=== PATIENT | female | born 1995 | race Hispanic/Latino ===

== ENCOUNTER 2017-06-16 00:34 | Observation (INO) | payer BC ==
[2017-06-16 01:22] LABS: Absolute Lymphocytes (CBC) 3.3 K/uL (0.7-4.9); Absolute Monocytes 0.6 K/uL (0.1-1.3); Absolute Neutrophil 5.1 K/uL (1.8-8.0); Eosinophils % 0.9 % (0-4.4); Hematocrit 41.4 % (36.0-45.0); Lymphocytes % 36.3 % (15.3-44.8); MCH 30.1 pg (27.0-35.0); MCV 90.7 fL (80-100); MPV 7.9 fL (7.6-11.3); RBC Red Blood Cell Count 4.56 M/uL (3.86-4.86)
[2017-06-16 01:26] LABS: Protime INR 1.22
[2017-06-16 01:33] LABS: Bicarbonate 24 mEq/L (21-31); Glucose Level 106 mg/dL (65-120); Potassium 3.7 mEq/L (3.6-5.0); Sodium Level 135 mEq/L (135-145)
[2017-06-16 01:39] LABS: ALT/SGPT 11 IU/L (10-60); AST/SGOT 17 IU/L (10-42); Albumin 4.7 g/dL (3.2-5.5); Alkaline Phosphatase 63 IU/L (42-121); BUN Blood Urea Nitrogen 17 mg/dL (6-20); Bilirubin Direct 0.1 mg/dL (0-0.2); Bilirubin Total 0.4 mg/dL (0.3-1.2); Creatine Phosphokinase 117 IU/L (22-269); Glomerular Filtration Rate 75 mL/min (=/>90)
[2017-06-16 01:42] LABS: CKMB Creatine Kinase MB 0.7 ng/ml (0.3-4.0)
[2017-06-16 02:12] LABS: Thyroid Stimulating Hormone 3.66 uIU/mL (0.34-5.60)
--- NOTE | 2017-06-16 02:36 | EDPHYS ---
Physician Documentation [facility] Name: Fany Jones Age: 22 yrs Sex: Female : 1995 Arrival Date: 06/16/2017 Time: 00:35 Bed 7 Private MD: ED Physician Jann Danielle HPI: 06/16 01:23 This 22 yrs old Female presents to ER via Ambulatory with complaints of Chest snw Pain, Numbness, Shortness Of Breath. 01:23 Onset: The symptoms/episode began/occurred suddenly, today, at 21:00, and became snw persistent. Associated signs and symptoms: Pertinent positives: chest pain. Modifying factors: The patient symptoms are alleviated by nothing. The patient has experienced similar episodes in the past, lasted longer than ever this evening, pt states she has had similar episodes x 3 this week but this is the longest it has ever lasted. saw Dr. Pierce and had a blood panel done three weeks ago. Pt states her Vitamin D levels were very low and she has been taking replacement. No other medication changes.. 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 - Social history:: Smoking status: Patient/guardian denies using tobacco, Patient uses alcohol, occasionally. Patient/guardian denies using street drugs. ROS: 01:18 Constitutional: Negative for fever, chills, and weight loss, Eyes: Negative for injury, snw pain, redness, and discharge, ENT: Negative for injury, pain, and discharge, Neck: Negative for injury, pain, and swelling. 01:18 Back: Negative for injury and pain, : Negative for injury, bleeding, discharge, and swelling. 01:18 Skin: Negative for injury, rash, and discoloration. 01:18 Cardiovascular: Positive for chest pain, palpitations. 01:18 Respiratory: Positive for shortness of breath. 01:18 Abdomen/GI: Positive for nausea. 01:18 MS/extremity: Positive for swelling. 01:18 Neuro: Positive for tingling, of the left arm. Exam: 01:18 Constitutional: This is a well developed, well nourished patient who is awake, alert, snw and in no acute distress. Head/Face: Normocephalic, atraumatic. Eyes: Pupils equal round and reactive to light, extra-ocular motions intact. Lids and lashes normal. Conjunctiva and sclera are non-icteric and not injected. Cornea within normal limits. Periorbital areas with no swelling, redness, or edema. ENT: Nares patent. No nasal discharge, no septal abnormalities noted. Tympanic membranes are normal and external auditory canals are clear. Oropharynx with no redness, swelling, or masses, exudates, or evidence of obstruction, uvula midline. Mucous membranes moist. Neck: Trachea midline, no thyromegaly or masses palpated, and no cervical lymphadenopathy. Supple, full range of motion without nuchal rigidity, or vertebral point tenderness. No Meningismus. Chest/axilla: Normal chest wall appearance and motion. Nontender with no deformity. No lesions are appreciated. 01:18 Abdomen/GI: Soft, non-tender, with normal bowel sounds. No distension or tympany. No guarding or rebound. No evidence of tenderness throughout. Back: No spinal tenderness. No costovertebral tenderness. Full range of motion. Skin: Warm, dry with normal turgor. Normal color with no rashes, no lesions, and no evidence of cellulitis. MS/ Extremity: Pulses equal, no cyanosis. Neurovascular intact. Full, normal range of motion. Neuro: Awake and alert, GCS 15, oriented to person, place, time, and situation. Cranial nerves II-XII grossly intact. Motor strength 5/5 in all extremities. Sensory grossly intact. Cerebellar exam normal. Normal gait. 01:18 Cardiovascular: Rate: normal, Rhythm: regular, Pulses: no pulse deficits are appreciated, Heart sounds: normal, Edema: 1+ edema to level of left foot and right foot. 01:18 Respiratory: the patient does not display signs of respiratory distress, Respirations: shallow respirations, tachypnea, Breath sounds: are clear throughout. Vital Signs: 01:06 BP 156 / 117; Pulse 75; Resp 18 S; Temp 98.4(O); Pulse Ox 100% on R/A; Weight 57.15 kg jd3 (R); Height 5 ft. 7 in. (170.18 cm) (R); Pain 0/10; 01:36 BP 136 / 93; Pulse 80; Resp 17 S; Pulse Ox 99% on R/A; Pain 0/10; jd3 02:32 BP 124 / 80; Pulse 96; Resp 18 S; Pulse Ox 100% on R/A; Pain 0/10; jd3 02:57 BP 144 / 97; Pulse 79; Resp 15 S; Pulse Ox 100% on R/A; Pain 0/10; jd3 04:03 BP 124 / 86; Pulse 83; Resp 18 S; Pulse Ox 100% on R/A; Pain 0/10; jd3 01:06 Body Mass Index 19.73 (57.15 kg, 170.18 cm) jd3 MDM: 00:54 Patient medically screened. snw 02:00 ED course: pt is feeling back to normal but has moved to [place] and as yet does [facility] not have a Hvac Instructor. I fear she will be unable to get urgent follow up and would like her to be hospitalized for Echo and Cardiology consultation. 02:35 Data reviewed: vital signs, nurses notes. Data interpreted: Pulse oximetry: on room air snw is 100 %. Interpretation: normal. Counseling: I had a detailed discussion with the patient and/or guardian regarding: the historical points, exam findings, and any diagnostic results supporting the discharge/admit diagnosis, the presence of at least one elevated blood pressure reading (>120/80) during this emergency department visit, lab results, radiology results, the need for outpatient follow up, the need for further work-up and treatment in the hospital. Physician consultation: Yvette More MD was called at 02:36, was contacted at 02:36, regarding admission, to the telemetry unit. 04 01:00 Order name: Basic Metabolic Panel; Complete Time: 02:15 snw 06/16 01:00 Order name: BNP; Complete Time: 02:15 snw 06/16 01:00 Order name: CBC with Diff; Complete Time: 02:15 snw 06/16 01:00 Order name: Ckmb; Complete Time: 02:15 snw 06/16 01:00 Order name: CPK; Complete Time: 02:15 snw 06/16 01:00 Order name: LFT's; Complete Time: 02:15 snw 06/16 01:00 Order name: Magnesium; Complete Time: 02:15 snw 06/16 01:00 Order name: PT-INR; Complete Time: 02:15 snw 06/16 01:00 Order name: Ptt, Activated; Complete Time: 02:15 snw 06/16 01:00 Order name: Troponin (emerg Dept Use Only); Complete Time: 02:15 snw 06/16 01:00 Order name: TSH; Complete Time: 02:15 snw 06/16 01:00 Order name: Test, Serum; Complete Time: 02:15 snw 06/16 01:54 Order name: Urine Dipstick--Ancillary (enter results) [facility] 06/16 01:54 Order name: Urine --Ancillary (enter results) 2 06/16 01:00 Order name: XRAY Chest (1 view) snw 06/16 01:00 Order name: EKG; Complete Time: 01:01 snw 06/16 01:00 Order name: Cardiac monitoring; Complete Time: 01:16 snw 06/16 01:00 Order name: EKG - Nurse/Tech; Complete Time: 01:03 snw 06/16 01:00 Order name: IV Saline Lock; Complete Time: 01:16 snw 06/16 01:00 Order name: Labs collected and sent; Complete Time: 01:16 snw 06/16 01:00 Order name: O2 Per Protocol; Complete Time: 01:16 snw 06/16 01:00 Order name: O2 Sat Monitoring; Complete Time: 01:16 snw 06/16 01:00 Order name: Urine Dipstick-Ancillary (obtain specimen); Complete Time: 01:28 snw Administered Medications: No medications were administered Disposition: 06/16/17 02:35 Hospitalization ordered by Yvette More for Observation. Preliminary diagnosis is Chest pain, unspecified. - Bed requested for Telemetry/MedSurg (observation). - Status is Observation. jd3 - Condition is Stable. - Problem is new. - Symptoms have improved. UTI on Admission? No Addendum: 06/20/2017 08:33 Co-signature as Attending Physician, Jann Danielle MD. g s Signatures: Dispatcher [facility] Sharon Walker RN RN kl Corina Kearney, WEBFED OFFSET PRESS OPERATOR-C WEBFED OFFSET PRESS OPERATOR-Csnw Jann Danielle MD MD gs Davies, Jonathon RN RN jd3
--- NOTE | 2017-06-16 02:36 | ER ---
Nurse's Notes [facility] Name: Fany Jones Age: 22 yrs Sex: Female : 1995 Arrival Date: 06/16/2017 Time: 00:35 Bed 7 Private MD: Diagnosis: Chest pain, unspecified Presentation: 06/16 01:00 Presenting complaint: Patient states: " was sitting in bed when I got very light headed jd3 and my chest started to hurt, I tried to wait it out, but it just got worse. My arm started to get numb and pulse oximeter I keep at the bedside said I was very low on my oxygen levels.". Transition of care: patient was not received from another setting of care. Onset of symptoms was June 16, 2017. Care prior to arrival: None. 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 - Social history:: Smoking status: Patient/guardian denies using tobacco, Patient uses alcohol, occasionally. Patient/guardian denies using street drugs. Screenin:15 Abuse screen: Denies threats or abuse. Nutritional screening: No deficits noted. jd3 Tuberculosis screening: No symptoms or risk factors identified. Fall Risk IV access (20 points). Total Gibbs Fall Scale indicates No Risk (0-24 pts). Assessment: 01:08 General: Appears in no apparent distress. uncomfortable, Behavior is cooperative, jd3 appropriate for age, anxious. Pain: Denies pain. Pain does not radiate. Pain began suddenly, 2 hours ago. Neuro: Level of Consciousness is awake, alert, obeys commands, Oriented to person, place, time, situation. Cardiovascular: Heart tones S1 S2 present Capillary refill < 3 seconds Rhythm is regular. Respiratory: Airway is patent Respiratory effort is even, unlabored, Respiratory pattern is regular, symmetrical, Breath sounds are clear bilaterally. GI: Abdomen is flat, Bowel sounds present X 4 quads. Abd is soft and non tender X 4 quads. Reports nausea. : No signs and/or symptoms were reported regarding the genitourinary system. EENT: No signs and/or symptoms were reported regarding the EENT system. Derm: Skin is intact, Skin is dry, Skin is normal, Skin temperature is warm. Musculoskeletal: Circulation, motion, and sensation intact. Range of motion: intact in all extremities. 01:37 Reassessment: Patient appears in no apparent distress at this time. Patient and/or jd3 family updated on plan of care and expected duration. Pain level reassessed. Patient is alert, oriented x 3, equal unlabored respirations, skin warm/dry/pink. 02:32 Reassessment: Patient appears in no apparent distress at this time. Patient and/or jd3 family updated on plan of care and expected duration. Pain level reassessed. Patient is alert, oriented x 3, equal unlabored respirations, skin warm/dry/pink. 02:57 Reassessment: Patient appears in no apparent distress at this time. Patient and/or jd3 family updated on plan of care and expected duration. Pain level reassessed. Patient is alert, oriented x 3, equal unlabored respirations, skin warm/dry/pink. provider at bedside discussing plan of care. 04:04 Reassessment: Patient appears in no apparent distress at this time. Patient and/or jd3 family updated on plan of care and expected duration. Pain level reassessed. Patient is alert, oriented x 3, equal unlabored respirations, skin warm/dry/pink. 04:19 Reassessment: Patient appears in no apparent distress at this time. Patient and/or jd3 family updated on plan of care and expected duration. Pain level reassessed. Patient is alert, oriented x 3, equal unlabored respirations, skin warm/dry/pink. pt reported understanding of need for admission Patient denies pain at this time. Vital Signs: 01:06 BP 156 / 117; Pulse 75; Resp 18 S; Temp 98.4(O); Pulse Ox 100% on R/A; Weight 57.15 kg j (R); Height 5 ft. 7 in. (170.18 cm) (R); Pain 0/10; 01:36 BP 136 / 93; Pulse 80; Resp 17 S; Pulse Ox 99% on R/A; Pain 0/10; jd3 02:32 BP 124 / 80; Pulse 96; Resp 18 S; Pulse Ox 100% on R/A; Pain 0/10; jd3 02:57 BP 144 / 97; Pulse 79; Resp 15 S; Pulse Ox 100% on R/A; Pain 0/10; jd3 04:03 BP 124 / 86; Pulse 83; Resp 18 S; Pulse Ox 100% on R/A; Pain 0/10; jd3 01:06 Body Mass Index 19.73 (57.15 kg, 170.18 cm) jd3 ED Course: 00:35 Patient arrived in ED. ds1 00:54 Corina Kearney FNP-C [facility]. snw 00:54 Jann Danielle MD is Attending Physician. snw 01:[address] RN is Primary Nurse. jd3 01:03 Triage completed. jd3 01:08 Arm band placed on. EKG completed in triage. Results shown to MD. jd3 01:13 X-ray completed. Portable x-ray completed in exam room. Patient tolerated procedure kw well. 01:14 XRAY Chest (1 view) In Process Unspecified. EDMS 01:15 Patient has correct armband on for positive identification. Bed in low position. Call jd3 light in reach. Side rails up X2. Adult w/ patient. youth nutritional monitor on. Pulse ox on. NIBP on. 01:15 Inserted saline lock: 20 gauge in right forearm, using aseptic technique. Blood jd3 collected. placed by Vikki BAINS. Patient maintains SpO2 saturation greater than 95% on room air. 02:35 Yvette More MD is Hospitalizing Provider. snw 04:03 No provider procedures requiring assistance completed. Patient admitted, IV remains in jd3 place. Administered Medications: No medications were administered Outcome: 02:35 Decision to Hospitalize by Provider. snw 04:04 Condition: stable jd3 04:04 Instructed on the need for admit, Demonstrated understanding of instructions. 04:12 Admitted to Tele accompanied by tech, via wheelchair, room 430, with chart, Report jd3 called to Vickie BAINS 04:20 Patient left the ED. jd3 Signatures: Dispatcher [employer] EDDE Corina Kearney FNP-C FNP-Rhoda Sher ds1 Poonam Tai Jonathon RN RN jd3 Corrections: (The following items were deleted from the chart) 02:58 02:57 Reassessment: Patient appears in no apparent distress at this time. Patient jd3 and/or family updated on plan of care and expected duration. Pain level reassessed. Patient is alert, oriented x 3, equal unlabored respirations, skin warm/dry/pink. jd3
--- NOTE | 2017-06-16 03:04 | P.HP ---
Certification for Inpatient Patient admitted to: Observation With expected LOS: <2 Midnights Practitioner: I am a practitioner with admitting privileges, knowledge of patient current condition, hospital course, and medical plan of care. Services: Services provided to patient in accordance with Admission requirements found in Title 42 Section 412.3 of the Code of Federal Regulations Patient History Date of Service: 06/16/17 Reason for admission: palpitations, chest pain, dyspnea History of Present Illness: Ms Jones is a 22 years old woman with history of AVR in 2010 due to aortic regurgitation. She is from [facility] and is recently relocated here, she does not have a local global analytics head yet. Last ECHO done in February of 2017 and she said that "every thing was ok". Since about 5 month ago, she has had recurrent episodes of palpitations associated with lightheadedness, SOB and chest tightness. The episodes last for about 10 minutes, and resolved when she relax. Last night she had similar symptoms, however, this time last for about 3 hours. Her pulse oxymeter showed HR about 135 bpm. At arrival to ED she was on SR at 70 's bpm. At the time of my examination, palpitations and SOB were resolved, however, she was still complaining of lightheadedness. Trop I negative. INR 1.2 , she takes Coumadin 5 mg daily. 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 moist/pink, EOMI, Sclerae nonicteric Neck: Supple, 2+ carotid pulse no bruit, No LAD, Without JVD or thyroid abnormality Respiratory: Clear to auscultation bilaterally, Normal air movement Cardiovascular: Regular rate/rhythm, Normal S1 S2 Gastrointestinal: Normal bowel sounds, No tenderness Musculoskeletal: No tenderness Integumentary: No rashes Neurological: Normal speech, Normal strength at 5/5 x4 extr, Normal tone, Normal affect Lymphatics: No axilla or inguinal lymphadenopathy - Studies Laboratory Data (last 24 hrs) 06/16/17 01:10: PT 14.4 H, INR 1.22, APTT 29.8 06/16/17 01:10: WBC 9.2, Hgb 13.7, Hct 41.4, Plt Count 324 06/16/17 01:10: B-Natriuretic Peptide 21 06/16/17 01:10: Sodium 135, Potassium 3.7, BUN 17, Creatinine 0.92, Glucose 106 , Magnesium 2.0, Total Bilirubin 0.4, AST 17, ALT 11, Alkaline Phosphatase 63 Assessment and Plan - Problems (Diagnosis) (1) Palpitations Current Visit: Yes Status: Acute (2) Hx of aortic valve replacement Current Visit: Yes Status: Acute (3) Aortic stenosis Current Visit: Yes Status: Acute (4) Lightheadedness Current Visit: Yes Status: Acute - Plan Ms Jones will be admitted to the hospital under observation due to palpitations associated with dyspnea and lightheadedness. EKG shows no ST-T abnormalities, trop I negative. Consider paroxysmal SVT as differential diagnosis. Will order an ECHO, consult global analytics head. Will order full dose lovenox until INR get appropriate range of anticoagulation. - Advance Directives Does patient have a Living Will: No Does patient have a Durable POA for Healthcare: No - Code Status/Comfort Care Code Status Assessed: Yes Code Status: Full Code
[2017-06-16] MEDS ORDERED: ONDANSETRON 4 MG/2 ML VIAL IV PRN (04:28)
[2017-06-16 05:08] LABS: Urine Blood TRACE (NEG); Urine Glucose NEGATIVE (NEG); Urine Protein NEGATIVE (NEG); Urine Specific Gravity 1.015 (1.005-1.030)
--- NOTE | 2017-06-16 06:31 | EKG ---
Test Date: 2017-06-16 Test Time: 00:57:43 Toe Former: TIMOTEO MEASUREMENT RESULTS: Intervals: Rate: 77 UT: 144 QRSD: 88 QT: 392 QTc: 443 Rock: P: 69 UT: 144 QRS: 84 T: 27 INTERPRETIVE STATEMENTS: Normal sinus rhythm Normal ECG Compared to ECG 04/24/2017 10:05:32 Incomplete right bundle-branch block no longer present Electronically Signed On 06-16-17 06:30:47 CDT by Srinivas Jain
[2017-06-16] MEDS: ENOXAPARIN 60 MG/0.6 ML SQ SCH ×2 (08:49→20:04)
--- NOTE | 2017-06-16 08:55 | RAD REPORT ---
EXAM DESCRIPTION: RAD - Chest Single View - 06/16/2017 1:15 am CLINICAL HISTORY: Chest pain. COMPARISON: None. FINDINGS: Portable technique limits examination quality. The lungs are grossly clear. The heart is normal in size. No displaced fractures.Sternotomy wires not ed. IMPRESSION: No acute intrathoracic process suspected.
[2017-06-16] MEDS ORDERED: ENOXAPARIN 40 MG/0.4 ML SQ SCH (09:00)
--- NOTE | 2017-06-16 13:25 | CON ---
Additional: Dr. Sandoval. Chief Complaint: Heart racing, shortness of breath. History Of Present Illness: Ms. Jones has a history of aortic valve surgery at age 19. It was c ongenital aortic stenosis. She did not have rheumatic heart disease. 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 It was fairly small, a size usually used for pediatrics and she is a small person. Her nuclear auxiliary operator in [place] was concerned that she was developing stenosis within the prosthetic valve and was having mitral regurgitation. The patient reports that her heart rate pi cks up to 130 at times and they do not have any EKG recordings available when that is doing that. I strongly suspect she has atrial fib. Outpatient medications are Coumadin, 52950 unit vitamin D3 caps ule. Coumadin is 5 mg a day since being in the hospital. Cardiac enzymes are normal. Her INR is davis btherapeutic. It is only 1.22 risky for a patient with a mechanical aortic valve. She is getting enoxaparin presently and course . Increase the dose of Coumadin she takes. We ne ed to keep her on Lovenox until the INR is above 2. Physical Examination: General: She is 5 feet 7 inches, 125 pounds. Alert, oriented, pleasant, not in distress. Lungs: Clear. Cardiac: Normal except for prosthetic heart tones. There is no significant murmur. No diastolic mu rmur. Abdomen: Soft. Extremities: No cyanosis, clubbing, or edema. Distal pulses are normal. Though the patient is not anticoagulated enough I do not think there is any significant valvular dysf unction. We will do an echo and see then. I suspect she has atrial fibrillation. We will have to r ecord it before we could really engage in antiarrhythmic drug therapy. I will ask the ER to make nai e they did not actually see some atrial fibrillation and I would recommend, we keep her in the hospit al till her INR is therapeutic. WENDY/MARCOS Voice ID: [id number] Report ID: [id number]
--- NOTE | 2017-06-16 14:48 | ECHO ---
HEIGHT: 5 ft 7 in WEIGHT: 125 lb 4.8 oz DATE OF STUDY: 06/16/[address]: Yvette Sandoval MD 2-DIMENSIONAL: YES M.MODE: YES DOPPLER: YES COLOR FLOW: YES TDS: NO PORTABLE: NO DEFINITY: NO BUBBLE STUDY: NO DIAGNOSIS: PALPITATIONS/ CHEST PAIN CARDIAC HISTORY: CATHERIZATION: NO SURGERY: YES PROSTHETIC VALVE: YES (AORTIC VALVE) PACEMAKER: NO MEASUREMENTS (cm) DIASTOLIC (NORMALS) SYSTOLIC (NORMALS) IVSd 0.8 (0.6-1.2) LA Diam 2.3 (1.9-4.0) LVEF 69% LVIDd 4.1 (3.5-5.7) LVIDs 2.5 (2.0-3.5) %FS 38% LVPWd 0.9 (0.6-1.2) Ao Diam 2.1 (2.0-3.7) 2 DIMENSIONAL ASSESSMENT: RIGHT ATRIUM: NORMAL LEFT ATRIUM: NORMAL RIGHT VENTRICLE: NORMAL LEFT VENTRICLE: NORMAL TRICUSPID VALVE: NORMAL MITRAL VALVE: MITRAL VALVE PROLAPSE WITH THICKENING PULMONIC VALVE: NORMAL AORTIC VALVE: BIOPROSTHETIC PERICARDIAL EFFUSION: NONE AORTIC ROOT: NORMAL LEFT VENTRICULAR WALL MOTION: PARADOXICAL SEPTAL MOTION SEEN POST THORACOTOMY. DOPPLER/COLOR FLOW: MILD AORTIC REGURGITATION. NO SIGNIFICANT AORTIC PROSTHETIC STENOSIS, PEAK/MEAN GRADIENT 28/20mmHg. ESTIMATED AORTIC VALVE AREA 2.6 CENTIMETERS SQUARED. MILD MITRAL AND TRICUSPID REGURGITATION. NORMAL RIGHT VENTRICULAR SYSTOLIC PRESSURE. COMMENTS: NORMAL LEFT VENTRICULAR EJECTION FRACTION WITH PARADOXICAL SEPTAL MOTION. PROSTHETIC AORTIC VALVE WITH MILD PARAVALVULAR AORTIC REGURGITATION. NO SIGNIFICANT AORTIC STENOSIS. MILD MITRAL AND TRICUSPID REGURGITATION. MITRAL VALVE PROLAPSE. TECHNOLOGIST: VANITA DIAZ
--- NOTE | 2017-06-16 15:10 | PN ---
Date of Progress Note: 06/16/2017 Subjective: The patient is seen and examined, chart reviewed and case discussed with RN and Dr. Jain. The patient states her palpitations are improved. Her condition is overall better. Denies any chest pain or shortness of breath. Review of Systems: Negative except as above. Medications: Reviewed. Physical Examination: Vital Signs: Temperature 98.5, heart rate 67, blood pressure 117/69, respirations 16, and O2 98% on room air. General: Awake, alert, oriented, no acute distress. cachectic female. BMI 19. CV: S1, S1. Peripheral pulses present. Positive mechanical murmur. Respiratory: Moving air well bilaterally. No wheezing. Gastrointestinal: Soft abdomen. Nontender, nondistended. Positive bowel sounds. Extremities: No clubbing, cyanosis, or edema. Neurologic: Nonfocal. Laboratory Data: Sodium 135, potassium 3.7, chloride 107, CO2 24, BUN 17, creatinine 0.92, glucose 106, calcium is 10.1, and magnesium 2. Troponin less than 0.03 x2. BNP 21. TSH 3.66. Urine test negative. INR 1.22. WBC 9.2, H and H 13.7, 41.4, and platelets 324. Chest x-ray personally reviewed , shows intrathoracic process identified. Echocardiogram pending. Assessment And Plan: A 22-year-old female with; 1. Palpitations, may be paroxysmal atrial fibrillation or other arrhythmias, such as non sustained ventricular tachycardia. We will continue cardiac telemetry and obtain echocardiogram. Cardiology is being consulted. 2. History of mechanical aortic valve replacement due to congenital disorder. INR is subtherapeutic. We will continue on therapeutic dose of Lovenox 1 mg/ kg q.12 hours and increase Coumadin dose and monitor INR. 3. History of aortic stenosis. 4. Lightheadedness, resolved. SA/MODL Voice ID: [id number] Report ID: [id number] MTDD
[2017-06-16] MEDS ORDERED: WARFARIN SODIUM 6 MG TAB PO SCH (17:00)
[2017-06-17] MEDS ORDERED: NA CHLORIDE 0.9% 0 ML ONE (01:32)
[2017-06-17] MEDS ORDERED: ACETAMINOPHEN 500 MG TAB PO PRN (05:05)
[2017-06-17 05:12] LABS: Absolute Lymphocytes (CBC) 4.7 K/uL (0.7-4.9); Absolute Monocytes 0.8 K/uL (0.1-1.3); Absolute Neutrophil 4.3 K/uL (1.8-8.0); Eosinophils % 2.1 % (0-4.4); Hematocrit 41.1 % (36.0-45.0); Lymphocytes % 46.2 % (15.3-44.8); MCH 29.9 pg (27.0-35.0); MCV 91.4 fL (80-100); MPV 8.3 fL (7.6-11.3); Monocytes % 8.2 % (3.3-12.3)
[2017-06-17 05:15] LABS: Protime INR 1.13
[2017-06-17] MEDS: ENOXAPARIN 60 MG/0.6 ML SQ SCH (08:20)
--- NOTE | 2017-06-17 08:22 | EKG ---
Test Date: 2017-06-17 Test Time: 07:57:07 Child Protective Services Specialist: AED MEASUREMENT RESULTS: Intervals: Rate: 65 [place]: 140 QRSD: 88 QT: 414 QTc: 430 [place]: P: -14 MO: 140 QRS: 73 T: 4 INTERPRETIVE STATEMENTS: Normal sinus rhythm Normal ECG Compared to ECG 06/16/2017 00:57:43 No significant changes Electronically Signed On 06-17-17 08:21:36 CDT by Srinivas Jain
--- NOTE | 2017-06-18 01:09 | DS ---
Date of Discharge: 06/17/2017 Supervisor Production: Srinivas Jain MD, Cardiology. Admitting Diagnoses: 1.Palpitations. 2.History of aortic valve replacement. 3.Aortic stenosis. 4.Lightheadedness. Discharge Diagnoses: 1.Palpitations, likely paroxysmal atrial fibrillation. 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 3.Subtherapeutic INR. 4.History of aortic stenosis. 5.Lightheadedness, resolved. Hospital Course: The patient is a 22-year-old female who was admitted to the hospital for palpitatio ns. The patient stated that her heart rate was in the 130s and this has occurred before, however, di d not go away this time. The patient came into the ER for further evaluation. She was admitted, was back in sinus rhythm. Echocardiogram was done, which showed EF of 69%. Prosthetic aortic valve wit h mild paravalvular aortic regurgitation. No significant aortic stenosis. Mild mitral and tricuspid regurgitation. Mitral valve prolapse. Chest x-ray was also negative. Labs showed negative troponi n levels. White count was normal. Her INR was found to be subtherapeutic at 1.22. She was started on Lovenox 60 mg b.i.d., 1 mg/kg dose. Her Coumadin dose was also increased. The patient was counse led again on being compliant with her medications. She states that she has not missed any doses. Jules rizo was also counseled on Coumadin restricted diet. The patient notes understanding. The patient then did not have any arrhythmias on her telemetry. She continued to be in sinus rhythm with the rate in the 60s therefore unable to tolerate beta-jayne. The patient then wanted to go home. She underst ands that her INR is subtherapeutic and it may be safer for her to be monitored in the hospital to singh ve INR checked and keep an eye on her blood levels. However, the patient would rather go home. She has given herself Lovenox shots previously and is reliable and has good followup. The patient plans to follow up with Dr. Jain' office on Monday for INR check. Dr. Jain will see the patient on Mon for INR check. The patient was then cleared for discharge from Cardiology standpoint. The patie daniel was then discharged home in a stable condition. Activity: As tolerated. Medications: As per medication reconciliation list. Continue Lovenox 1 mg/kg dose b.i.d. until INR is therapeutic between 2.5 and 3.5. PCP to adjust Coumadin dose. Return to ER for worsening conditi on. Diet: Coumadin restricted diet. Medications: As per medication reconciliation list. Discharge Physical Examination: General: Awake, alert, oriented, no acute distress. CV: S1, S2. Peripheral pulses present. Regular rate and rhythm. Mechanical murmur. Respiratory: Clear to auscultation bilaterally. No wheezing. Abdomen: Soft, nontender, nondistended. Positive bowel sounds. Extremities: No clubbing, cyanosis, edema. Neurologic: Nonfocal. SA/MODL Voice ID: [id number] Report ID: [id number]
== END 2017-06-17 11:30 | disposition home or self-care (01) ==
LOC: ER 00:34 → ERHOLD 02:38 → 4TH 03:58
PROVIDERS: ADMIT Internal Medicine; ATTEND Internal Medicine
DX: R00.2 Palpitations (principal); Z95.2 Presence of prosthetic heart valve; R42 Dizziness and giddiness; R79.1 Abnormal coagulation profile
CPT/HCPCS: 36415; 71045; 80048; 80076; 81003; 81025; 82550; 82553; 83735; 83880; 84443; 84484; 84703; 85025; 85610; 85730; 93005; 93306; 94760; 99285; G0378; J1650; J2405

== ENCOUNTER 2017-12-05 03:28 | Emergency (ER) | payer BC ==
[2017-12-05] MEDS ORDERED: ONDANSETRON 4 MG/2 ML VIAL ONE (04:18)
[2017-12-05] MEDS ORDERED: NA CHLORIDE 0.9% 1,000 ML ONE (04:45)
[2017-12-05 04:53] LABS: Absolute Lymphocytes (CBC) 1.8 K/uL (0.7-4.9); Absolute Monocytes 0.3 K/uL (0.1-1.3); Absolute Neutrophil 6.8 K/uL (1.8-8.0); Basophils % 0.5 % (0-1.3); Eosinophils % 0.5 % (0-4.4); Hematocrit 40.7 % (36.0-45.0); MCV 92.2 fL (80-100); MPV 8.3 fL (7.6-11.3); Monocytes % 3.5 % (3.3-12.3); RBC Red Blood Cell Count 4.41 M/uL (3.86-4.86)
[2017-12-05 05:01] LABS: Albumin 4.3 g/dL (3.4-5.0); Bilirubin Direct 0.1 mg/dL (0-0.2); Bilirubin Total 0.3 mg/dL (0.2-1.0); Potassium 4.6 mmol/L (3.5-5.1); Protein, Total 7.8 g/dL (6.4-8.2)
--- NOTE | 2017-12-05 05:44 | EDPHYS ---
Physician Documentation [facility] Name: Fany Jones Age: 22 yrs Sex: Female : 1995 Arrival Date: 12/05/2017 Time: 03:30 Bed 15 Private MD: Kari Parker ED Physician Leisa Osorio HPI: 12/05 05:08 This 22 yrs old Female presents to ER via Ambulatory with complaints of ma2 Nausea/Vomiting, Headache. 05:08 The patient presents to the emergency department with nausea, diarrhea. Onset: The ma2 symptoms/episode began/occurred gradually, 1 day(s) ago. Associated signs and symptoms: Pertinent positives: nausea, Pertinent negatives: abdominal pain, belching, diarrhea, fever, flatulence, GI bleeding, vaginal discharge. Severity of symptoms: At their worst the symptoms were moderate in the emergency department the symptoms are unchanged. The patient has experienced a previous episode. 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 - Social history:: Smoking status: Patient/guardian denies using tobacco, Patient/guardian denies using alcohol, street drugs, The patient lives with family. - Ebola Screening: : No symptoms or risks identified at this time. - Family history:: not pertinent. ROS: 05:08 Constitutional: Negative for fever, chills, and weight loss, Neck: Negative for injury, ma2 pain, and swelling, Cardiovascular: Negative for chest pain, palpitations, and edema. 05:08 Abdomen/GI: Positive for nausea, Negative for abdominal pain, nausea and vomiting, diarrhea, constipation, abdominal distension, black/tarry stool, rectal bleeding, bowel incontinence. 05:08 All other systems are negative. Exam: 05:08 Constitutional: This is a well developed, well nourished patient who is awake, alert, ma2 and in no acute distress. Chest/axilla: Normal chest wall appearance and motion. Nontender with no deformity. No lesions are appreciated. Cardiovascular: Regular rate and rhythm with a normal S1 and S2. No gallops, murmurs, or rubs. Normal PMI, no JVD. No pulse deficits. Respiratory: Lungs have equal breath sounds bilaterally, clear to auscultation and percussion. No rales, rhonchi or wheezes noted. No increased work of breathing, no retractions or nasal flaring. Abdomen/GI: Soft, non-tender, with normal bowel sounds. No distension or tympany. No guarding or rebound. No evidence of tenderness throughout. Back: No spinal tenderness. No costovertebral tenderness. Full range of motion. Neuro: Awake and alert, GCS 15, oriented to person, place, time, and situation. Cranial nerves II-XII grossly intact. Motor strength 5/5 in all extremities. Sensory grossly intact. Cerebellar exam normal. Normal gait. Vital Signs: 03:37 BP 133 / 89; Pulse 73; Resp 18; Temp 98.1; Pulse Ox 100% on R/A; Weight 57.15 kg; ea Height 5 ft. 7 in. (170.18 cm); Pain 8/10; 04:03 BP 114 / 76; Pulse 60; Resp 18; Pulse Ox 98% ; ea 05:34 BP 115 / 67; Pulse 78; Resp 18; Pulse Ox 100% on R/A; ea 06:00 BP 120 / 70; Pulse 70; Resp 18; Temp 97.8; Pulse Ox 99% ; Pain 0/10; ea 03:37 Body Mass Index 19.73 (57.15 kg, 170.18 cm) ea MDM: 04:36 Patient medically screened. ma2 05:08 Differential diagnosis: Nonspecific abd pain, gastritis, viral gastroenteritis, ma2 gastroenteritis. Data reviewed: vital signs, nurses notes, lab test result(s). 05:42 Counseling: I had a detailed discussion with the patient and/or guardian regarding: the ma2 historical points, exam findings, and any diagnostic results supporting the discharge/admit diagnosis, the presence of at least one elevated blood pressure reading (>120/80) during this emergency department visit, the need for outpatient follow up. Response to treatment: the patient's symptoms have resolved after treatment. 12/05 04:18 Order name: Basic Metabolic Panel 12/05 04:18 Order name: CBC with Diff; Complete Time: 05:27 12/05 04:18 Order name: Creatinine for Radiology; Complete Time: 05: ea 12/05 04:18 Order name: Hepatic Function; Complete Time: : ea 12/05 04:18 Order name: Lipase; Complete Time: 05: ea 12/05 04:18 Order name: Basic Metabolic Panel; Complete Time: 05: [facility] 12/05 04:18 Order name: IV Saline Lock; Complete Time: 04: ea 12/05 04:18 Order name: Labs collected and sent; Complete Time: : ea 12/05 04:38 Order name: PO challenge; Complete Time: 05:37 ma2 Administered Medications: 04:18 Drug: Zofran 4 mg Route: IVP; Site: right antecubital; ea 05:36 Follow up: Response: No adverse reaction; Nausea is decreased ea 04:41 Drug: NS 0.9% 1000 ml Route: IV; Rate: 1 bolus; Site: right antecubital; ea 05:14 Follow up: Response: No adverse reaction; IV Status: Completed infusion; IV Intake: ea 1000ml Disposition: 12/05/17 05:43 Discharged to Home. Impression: Nausea. - Condition is Stable. - Discharge Instructions: Nausea, Adult. - Prescriptions for Zofran 4 mg Oral Tablet - take 1 tablet by ORAL route every 12 hours As needed; 20 tablet. - Family Work Release, Medication Reconciliation Form, Thank You Letter, Antibiotic Education, Prescription Opioid Use form. - Follow up: Private Physician; When: As needed; Reason: Continuance of care. - Problem is new. - Symptoms are resolved. Signatures: Dispatcher MedHoPres[facility] Española HospitalGwen Mcdowell RN RN ea Alzahri, Mohammad, MD MD ma2 Corrections: (The following items were deleted from the chart) 06:18 05:43 12/05/2017 05:43 Discharged to Home. Impression: Nausea. Condition is Stable. ea Forms are Family Work Release, Medication Reconciliation Form, Thank You Letter, Antibiotic Education, Prescription Opioid Use. Follow up: Private Physician; When: As needed; Reason: Continuance of care. Problem is new. Symptoms are resolved. ma2
--- NOTE | 2017-12-05 05:44 | ER ---
Nurse's Notes [facility] Name: Fany Jones Age: 22 yrs Sex: Female : 1995 Arrival Date: 12/05/2017 Time: 03:30 Bed 15 Private MD: Kari Parker Diagnosis: Nausea Presentation: 12/05 03:38 Presenting complaint: Patient states: Pt reports that at 9:30 PM she started having ea headache, nausea and vomiting. Reports she vomited about 5 to 6 times. States "at 1 AM I started having a flutter feeling in my chest". Transition of care: patient was not received from another setting of care. Onset of symptoms was December 05, 2017. Risk Assessment: Do you want to hurt yourself or someone else? Patient reports no desire to harm self or others. Initial Sepsis Screen: Does the patient meet any 2 criteria? No. Patient's initial sepsis screen is negative. Does the patient have a suspected source of infection? No. Patient's initial sepsis screen is negative. Care prior to arrival: None. 03:38 Method Of Arrival: Ambulatory ea 03:38 Acuity: DEANGELO 3 ea Triage Assessment: 03:43 General: Appears uncomfortable, Behavior is calm, cooperative, appropriate for age. ea Pain: Complains of pain in head Pain does not radiate. Pain currently is 8 out of 10 on a pain scale. Quality of pain is described as aching. EENT: No signs and/or symptoms were reported regarding the EENT system. Neuro: Level of Consciousness is awake, alert, obeys commands, Oriented to person, place, time, situation. Respiratory: Airway is patent Respiratory effort is even, unlabored, Respiratory pattern is regular, symmetrical, Breath sounds are clear bilaterally. GI: Abdomen is non-distended, Bowel sounds present X 4 quads. Reports vomiting. : No signs and/or symptoms were reported regarding the genitourinary system. Derm: Skin is pink, warm \\T\\ dry. 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 - Social history:: Smoking status: Patient/guardian denies using tobacco, Patient/guardian denies using alcohol, street drugs, The patient lives with family. - Ebola Screening: : No symptoms or risks identified at this time. - Family history:: not pertinent. Screenin:43 Abuse screen: Denies threats or abuse. Nutritional screening: No deficits noted. ea Tuberculosis screening: No symptoms or risk factors identified. Fall Risk None identified. Assessment: 03:43 Reassessment: see triage assessment. ea 04:32 Reassessment: Patient and/or family updated on plan of care and expected duration. Pain ea level reassessed. Patient is alert, oriented x 3, equal unlabored respirations, skin warm/dry/pink. 05:33 Reassessment: Patient and/or family updated on plan of care and expected duration. Pain ea level reassessed. Patient is alert, oriented x 3, equal unlabored respirations, skin warm/dry/pink. PO challenge tolerated well. Patient states feeling better. 06:00 Reassessment: Patient and/or family updated on plan of care and expected duration. Pain ea level reassessed. Patient is alert, oriented x 3, equal unlabored respirations, skin warm/dry/pink. Discharge instructions given to patient, verbalized the understanding of instruction. Patient states feeling better. Patient states symptoms have improved. Vital Signs: 03:37 BP 133 / 89; Pulse 73; Resp 18; Temp 98.1; Pulse Ox 100% on R/A; Weight 57.15 kg; ea Height 5 ft. 7 in. (170.18 cm); Pain 8/10; 04:03 BP 114 / 76; Pulse 60; Resp 18; Pulse Ox 98% ; ea 05:34 BP 115 / 67; Pulse 78; Resp 18; Pulse Ox 100% on R/A; ea 06:00 BP 120 / 70; Pulse 70; Resp 18; Temp 97.8; Pulse Ox 99% ; Pain 0/10; ea 03:37 Body Mass Index 19.73 (57.15 kg, 170.18 cm) ea ED Course: 03:30 Patient arrived in ED. am2 03:30 Kari Parker MD is Private Physician. am2 03:37 Osman, Gwen, RN is Primary Nurse. ea 03:41 Triage completed. ea 03:46 Arm band placed on right wrist. ea 03:46 Patient has correct armband on for positive identification. Bed in low position. Call ea light in reach. Side rails up X2. 04:20 Inserted saline lock: 20 gauge in right antecubital area, using aseptic technique. ea Blood collected. 04:36 Leisa Osorio MD is Attending Physician. ma2 04:46 Basic Metabolic Panel Sent. ds4 04:46 CBC with Diff Sent. ds4 04:46 Creatinine for Radiology Sent. ds4 04:46 Hepatic Function Sent. ds4 04:46 Lipase Sent. ds4 04:46 Basic Metabolic Panel Sent. ds4 06:03 No provider procedures requiring assistance completed. IV discontinued, intact, ea bleeding controlled, No redness/swelling at site. Pressure dressing applied. Administered Medications: 04:18 Drug: Zofran 4 mg Route: IVP; Site: right antecubital; ea 05:36 Follow up: Response: No adverse reaction; Nausea is decreased ea 04:41 Drug: NS 0.9% 1000 ml Route: IV; Rate: 1 bolus; Site: right antecubital; ea 05:14 Follow up: Response: No adverse reaction; IV Status: Completed infusion; IV Intake: ea 1000ml Intake: 05:14 IV: 1000ml; Total: 1000ml. ea Outcome: 05:43 Discharge ordered by . ma2 06:03 Condition: improved ea 06:03 Discharge instructions given to patient, Instructed on discharge instructions, follow up and referral plans. medication usage, Demonstrated understanding of instructions, follow-up care, medications, Prescriptions given X 1. 06:18 Discharged to home ambulatory, with significant other. ea 06:18 Patient left the ED. ea Signatures: Isaias Roy ds4 Stefania Hemphill am2 Gwen Osman RN RN ea Leisa Osorio MD MD ma2 Corrections: (The following items were deleted from the chart) 04:04 04:02 BP 133 / 73; Pulse 109bpm; Resp 18bpm; Pulse Ox 100% RA; ea ea
--- NOTE | 2017-12-05 09:24 | EKG ---
Test Date: 2017-12-05 Test Time: 03:42:24 Installations Inspector: MAGAN MEASUREMENT RESULTS: Intervals: Rate: 66 [place]: 168 QRSD: 90 QT: 438 QTc: 459 [place]: P: 44 [place]: 168 QRS: 85 T: 32 INTERPRETIVE STATEMENTS: Normal sinus rhythm RSR' or QR pattern in V1 suggests right ventricular conduction delay Borderline ECG Compared to ECG 06/17/2017 07:57:07 RSR' in V1 or V2 now present Electronically Signed On 12-05-17 09:23:51 CDT by Jan Noel
== END 2017-12-05 06:18 | disposition home or self-care (01) ==
LOC: ER 03:28
DX: Z79.01 Long term (current) use of anticoagulants (principal); Z79.82 Long term (current) use of aspirin; Z88.8 Allergy status to other drugs, medicaments and biological substances; Z95.828 Presence of other vascular implants and grafts
CPT/HCPCS: 36415; 80048; 80076; 83690; 85025; 93005; 96361; 96374; 99284; J2405; J7030